=== PATIENT | female | born 1960 | race Caucasian/White ===

== ENCOUNTER 2025-03-06 15:08 | Outpatient (REF) | payer OTHER, SELFPAY ==
--- NOTE | 2025-03-06 | EMG_ITS ---
Chief complaint: History of right breast cancer, status post lumpectomy, radiation and axillary node biopsy 09/2023. Around March 2024, started feeling pain on right arm, diagnosed axillary web syndrome, underwent physical therapy. That pain is improved. However, around September 2024, started having numbness on right palm and fingers, not affecting 5th digit. Referred by: Raquel CROCKETT Procedure done: Right upper extremity NCS/EMG Precautions and/or limitations: None The limb temperature was monitored continuously and remained between 32-36 degrees C during the performance of the NCS. Nerve Conduction Studies Anti Sensory Summary Table ?Stim Site NR Onset (ms) Norm Onset (ms) Peak (ms) Norm Peak (ms) O-P Amp (?V) Norm O-P Amp Site1 Site2 Delta-0 (ms) Dist (cm) Oh (m/s) Norm Oh (m/s) Right Median Anti Sensory (2nd Digit) Wrist ? 4.3 5.5 <3.6 32.1 >10 Wrist 2nd Digit 4.3 14.0 33 Right Radial Anti Sensory (Thumb) Forearm ? 1.9 2.5 <3.1 28.4 Forearm Thumb 1.9 0.0 Right Ulnar Anti Sensory (5th Digit) Wrist ? 2.9 3.6 <3.7 22.4 >15.0 Wrist 5th Digit 2.9 14.0 48 Motor Summary Table ?Stim Site NR Onset (ms) Norm Onset (ms) O-P Amp (mV) Norm O-P Amp iAmp (mV) Amp (1st) (%) Site1 Site2 Delta-0 (ms) Dist (cm) Oh (m/s) Norm Oh (m/s) Right Median Motor (Abd Poll Brev) Wrist ? 6.0 <3.9 9.8 >4.5 11.0 100.0 Elbow Wrist 4.3 21.0 49 >45 Elbow ? 10.3 9.7 10.8 99.0 Right Ulnar Motor (Abd Dig Minimi) Wrist ? 3.0 <3.0 6.5 >5 8.1 100.0 B Elbow Wrist 4.0 21.0 53 >45 B Elbow ? 7.0 6.2 7.5 95.4 A Elbow B Elbow 1.6 10.0 63 >45 A Elbow ? 8.6 5.9 7.1 90.8 EMG ?Side Muscle Nerve Root Ins Act Fibs Psw Amp Dur Poly Recrt Int Pat Comment Right 1stDorInt Ulnar C8-T1 Nml Nml Nml Nml Nml 0 Nml Complete Right FlexCarRad Median C6-7 Nml Nml Nml Nml Nml 0 Nml Complete Right Biceps Musculocut C5-6 Nml Nml Nml Nml Nml 0 Nml Complete Right Triceps Radial C6-7-8 Nml Nml Nml Nml Nml 0 Nml Complete Right Deltoid Axillary C5-6 Nml Nml Nml Nml Nml 0 Nml Complete Paraspinal EMG ?Side Muscle Nerve Root Ins Act Fibs Psw Comment Right Cervical Upper Rami Nml Nml Nml Right Cervical Mid Rami Nml Nml Nml Right Cervical Lower Rami Nml Nml Nml FINDINGS: Right median motor nerve showed prolonged distal latency, normal amplitude and normal conduction velocity. Right median sensory nerve showed prolonged peak latencies. All other nerves tested were within normal. Concentric needle EMG was performed in selected muscles of the right upper extremity and cervical paraspinals. Study did not reveal signs of electric abnormalities as shown in the table above. IMPRESSION: 1. This is an abnormal study. 2. 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 3. There is no electrodiagnostic evidence for ulnar neuropathy, brachial plexopathy, or cervical radiculopathy. Thank you for your kind referral. Emelyn Walker MD, ANGEL Board Certified, [place] [employer] and Rehabilitation (ABPMR) Board Certified, [place] Board of Electrodiagnostic Medicine (ABEM) CODIN 03922 x 1 extremity MTDD
--- OUTSIDE RECORDS SUMMARY | 2025-03-06 18:20 | XMS_ITS | Encounter Summary ---
Author Organization [facility] Address [address] [place] [address] Care Team Providers Care Process Control Manager Name Role Phone Martir Jameson MD Primary Care Provider [phone] Encounter Details Date Type Department Care Team (Late st Contact Info) Description 01/29/2025 Results Follow-Up Adult Medicine [address] [phone] Eliseo Harrell MD [address] [place] [address] Social History Tobacco Use Types Packs/Day Years Used Date Smoking Tobacco: Never Smokeless Tobacco: Never Alcohol Use Standard Drinks/Week Comments Yes 0 (1 standard drink = 0.6 oz pur e alcohol) Comments Unknown Sex and Gender Information Value Date Recorded Sex Assigned at Not on file Legal Sex Female 10:45 AM EST Gender Identity Female 03/06/2025 6:08 PM EST Sexual Orientation Not on file documented as of this encounter Plan of Treatment Upcoming Encounters Date Type Department Care Team (Late Contact Info) Description 03/13/2025 3:00 PM EST Office Visit Orthopedic Surgery - [place] [address] [facility] [address] [place] [address] Raquel Wheatley PA [address] [place] [phone] 03/25/2025 5:00 PM EST Office Visit Adult Medicine [address] [phone] Shayla Narvaez, [employer]OACHER [address] [place] [address] documented as of this encounter Visit Diagnoses Not on filedocumented in this encounter Care Teams Process Control Manager Relationship Specialty Start Date End Date Martir Jameson MD [address] [place] [address] PCP - General Internal Medicine 10/08/09 documented as of this encounter
--- OUTSIDE RECORDS SUMMARY | 2025-03-06 18:20 | XMS_ITS | Clinical Summary ---
Author Organization [facility] [address] [place] [address] [place] [phone] Phone Care Team Providers Care Offset Press Operator Name Role Phone Martir Jameson MD Primary Care Provider [phone] Allergies No known active allergies Medications anastrozole (ARIMIDEX) 1 mg Take 1 tablet (1 mg total) by mouth 1 (one) time each day 11/10/2024 Active calcium citrate-vitamin D (CITRACAL+D) 315 mg-5 mcg (200 unit) per tablet Take 1 tablet by mouth 1 (one) time each day. 600 mg takes 2 daily Active meloxicam (MOBIC) 7.5 mg tabletIndicatio ns:Trigger finger of right thumb,Pain of right thumb Take 1 tablet (7.5 mg total) by mouth 1 (one) time each day if needed for moderate pain. 7 each 11/14/2024 Active Active Problems Problem Noted Date Diagnosed Date Prediabetes 11/15/2024 Elevated blood pressure reading 11/14/2024 Assessment & Plan (11/14/2024 3:21 PM EDT): Initial BP was 145/91 , 5 min average was 141/87 Advised to obtain a blood pressure monitor from her pharmacy and check blood pressure readings daily Follow-up in 2 weeks with blood pressure log Will check basic labs Orders: Blood pressure monitor Comprehensive metabolic panel; Future Hemoglobin A1c; Future Transthoracic echocardiogram (TTE) complete with PRN contrast, bubble, strain, and 3D order panel; Future Invasive ductal carcinoma of breast, female, right (CMS/HCC V24, CMS/HCC V28) 01/10/2023 Raynaud's disease 08/30/2021 Encounters Date Type Department Care Team Description 01/29/2025 Results Follow-Up [address] [phone] Eliseo Harrell MD 01/28/2025 3:30 PM EDT Ancillary Procedure [facility] [address] [facility] [place] [address] [place] [phone] Elevated blood pressure reading; Systolic murmur 12/24/2024 5:00 PM EDT Office Visit [address] [phone] Shayla Narvaez DYE ROOM HELPER Elevated blood pressure reading (Primary Dx); Prediabetes 12/20/2024 3:15 PM EDT Consult Orthopedic Surgery - [place] [address] [facility] [address] [place] [address] Raquel Wheatley PA Hand numbness (Primary Dx); Trigger finger of right thumb; Pain of right thumb from Last 3 Months Immunizations Immunization Administration Dates Next Due Influenza, Unspecified 01/18/2015 Td Tetanus diptheria (Tdvax) 7yo and older 08/30 Tdap Tetanus diptheria acell ular pertussis (Boostrix; Adacel) 7yo and older 11/19/2009 Surgical History Surgery Date Site/Laterality Comments BREAST BIOPSY 2009 Right PROCEDURE: BX BREAST; PERC NEEDLE CORE W/IMAG GUID; COMMENT: cyst asp BACK SURGERY 06/2014 PROCEDURE: HISTORICAL BACK SURGERY; COMMENT: L4 and L5 decompression and fusion Medical History Medical History Date Comments Invasive ductal carcinoma of breast, female, right (CMS/HCC V24, CMS/HCC V28) 01/10/2023 DX:Invasive ductal carcinoma of breast, female, right (HCC) Family History Medical History Relation Name Comments Other: Other Brother HIV Diabetes Father Heart attack Mother Hypertension Mother Other: pancreatic cancer Mother Other: CA Ovarian, Cervical Other Negative Hx Breast cancer Neg Hx Colon cancer Neg Hx Ovarian cancer Neg Hx Relation Name Status Comments Brother Father Mother Other Social History Tobacco Use Types Packs/Day Years Used Date Smoking Tobacco: Never Smokeless Tobacco: Never Tobacco Cessation:Counseling Given: Not Answered Alcohol Use Standard Drinks/Week Comments Yes 0 (1 standard drink = 0.6 oz pur e alcohol) Comments Unknown Sex and Gender Information Value Date Recorded Sex Assigned at Not on file Legal Sex Female 10:45 AM EST Gender Identity Female 03/06/2025 6:08 PM EST Sexual Orientation Not on file Obstetrics History Last Filed Vital Signs Vital Sign Reading Time Taken Comments Blood Pressure 149/91 01/28/2025 3:42 PM EDT Pulse 88 12/24/2024 4:02 PM EDT Temperature 36.2 C (97.1 F) 12/24/2024 4:02 PM EDT Respiratory Rate 16 12/24/2024 4:02 PM EDT Oxygen Saturation 95% 12/24/2024 4:02 PM EDT Inhaled Oxygen Concentration - - Weight 57.2 kg (126 lb) 01/28/2025 3:42 PM EDT Height 167.6 cm (5' 6 ) 01/28/2025 3:42 PM EDT Body Mass Index 20.34 01/28/2025 3:42 PM EDT Plan of Treatment Upcoming Encounters Date Type Department Care Team (Late st Contact Info) Description 03/13/2025 3:00 PM EST Office Visit Orthopedic Surgery - [place] [address] [facility] [address] [place] [phone] Raquel Wheatley PA [address] [facility] [address] [place] [address] [place] [phone] 03/25/2025 5:00 PM EST Office Visit Adult Medicine [facility] [address] [place] [phone] Shayla Narvaez DYE ROOM HELPER [address] [place], [place] Health Maintenance Due Date Last Done Comments Pneumococcal Vaccine: 50+ Years (1 of 2 - PCV) 1977 Zoster Vaccines (1 of 2) 1977 RSV Immunization Adult Patients (1 - Risk 50-74 years 1-dose series) 2008 Colorectal Cancer Screening: Stool Based Tests (FOBT/FIT) 04/02/2022 Osteoporosis Screening (Bone Density Screening) 04/02/2022 Social Influencers of Health Screening 04/02/2022 Falls Risk Assessment 08/07/2023 Depression Screening 04/24/2024 COVID-19 Vaccine ( season) 2024 05/14/2021, 08/28/2020, 2020 Influenza Vaccine (#1) 2024 02/18/2023, 2014 Breast Cancer Screening 01/09/2025 01/10/20 23, 12/29/2022, 01/20/2022, Additional history exists Cholesterol Screening (Lipid Panel) 04/08/2026 04/08/2021 DTaP,Tdap,and Td Vaccines (3 - Td or Tdap) 08/31/2031 08/30/2021, 11/19/2009 Hepatitis C Screening Completed 11/14/2024 HIB Vaccines Aged Out No longer eligi ble based on patient's age to complete this topic HPV Vaccines Aged Out No longer eligi ble based on patient's age to complete this topic Hepatitis A Vaccines Aged Out No long er eligible based on patient's age to complete this topic Hepatitis B Vaccines Aged Out No long er eligible based on patient's age to complete this topic IPV Vaccines Aged Out No longer eligi ble based on patient's age to complete this topic MMR Vaccines Aged Out No longer eligi ble based on patient's age to complete this topic Meningococcal ACWY Vaccine Aged Out N o longer eligible based on patient's age to complete this topic Meningococcal B Vaccine Aged Out No l onger eligible based on patient's age to complete this topic RSV Immunization Patients Under 20 months Aged Out No longer eligible based on patient's age to complete this topic Varicella Vaccines Aged Out No longer eligible based on patient's age to complete this topic Procedures Procedure Name Priority Date/Time Associated Diagnosis Comments TRANSTHORACIC ECHOCARDIOGRAM (TTE) COMPLETE Routine 01/28/2025 4:08 PM EDT Elevated blood pressure reading Systolic murmur HEPATITIS C ANTIBODY Routine 11/14/2024 3:48 PM EDT Need for hepatitis C screening test DX MAMMO INCL CAD UNI Routine 01/09/2023 1:29 PM EDT Mastodynia LIPID PANEL Routine 04/08/2021 from Last 3 Months or Most Recently Relevant to Health Maintenance Results * TRANSTHORACIC ECHOCARDIOGRAM (TTE) COMPLETE (01/28/2025 4:08 PM EDT) Left Atrium Minor [place] 4.6 cm CV PACS Left Atrium Major [place] 4.1 cm CV PACS LA Area Sys (A2C) 11 cm2 CV PACS LA Area Sys (A4C) 11 cm2 CV PACS LA Volume (BP) 23 mL CV PACS LA Size 3.2 cm CV PACS RA Area 9.0 cm2 CV PACS RA 2D Volume 15 mL CV PACS AV Mean Gradient 4 mmHg CV PACS AV Mean Gradient 4 mmHg CV PACS Ao VTI 30.1 cm CV PACS AV Peak Oh 1.6 m/s CV PACS AV Peak Gradient 10 mmHg CV PACS AV Area Continuity Equation 2.2 cm2 CV PACS AV Area Peak Velocity 2.6 cm2 CV PACS Aortic Arch 2.6 cm CV PACS Ascending Aorta 3.5 cm CV PACS Aortic Sinus Valsalva 3.4 cm CV PACS IVC Proximal 1.5 cm CV PACS IVSD 0.8 0.6 - 0.9 cm CV PACS LVIDD 4.9 3.8 - 5.2 cm CV PACS LVIDS 3.2 2.2 - 3.5 cm CV PACS LVOT Diameter 1.9 cm CV PACS LVOT Mean Oh 0.8 m/s CV PACS LVOT Mean Grad 4 mmHg CV PACS LVOT Peak VTI 23.6 cm CV PACS LVOT Peak Oh 1.4 m/s CV PACS LVOT Peak Gradient 8 mmHg CV PACS LVPWD 0.9 0.6 - 0.9 cm CV PACS MV E' Tissue Velocity Lateral 9 cm/s CV PACS MV E' Tissue Velocity Septal 8 cm/s CV PACS LVOT Area 2.8 cm2 CV PACS LVOT Stroke Volume 67 mL CV PACS MV Deceleration [place] 4.6 m/s2 CV PACS E Wave Deceleration Time 166 119 - 242 ms CV PACS MV PHT 49 ms CV PACS MV Peak A Oh 0.74 m/s CV PACS MV Peak E Oh 0.80 m/s CV PACS MV Mean Gradient 1 mmHg CV PACS MV Mean Gradient 1 mmHg CV PACS MV Mean Gradient 1 mmHg CV PACS MV Mean Gradient 1 mmHg CV PACS MV VTI 16.1 cm CV PACS Mitral Valve Max Velocity 0.7 m/s CV PACS MV Peak Gradient 2 mmHg CV PACS MV Area PHT 4.5 cm2 CV PACS MV Area Continuity Equation 4.2 cm2 CV PACS PV Acceleration Time 225 ms CV PACS PV Acceleration Time 183 ms CV PACS PV Acceleration Time 151 ms CV PACS PV Acceleration Time 186 ms CV PACS PV Mean Gradient 1 mmHg CV PACS PV VTI 15.5 cm CV PACS PV Peak Velocity 0.8 m/s CV PACS PV Peak Gradient 2 mmHg CV PACS RV Diastolic Basal Dimension 3.1 2.5 - 4.1 cm CV PACS RV S' 12 cm/s CV PACS TAPSE 21 mm CV PACS TR Peak Velocity 2.17 m/s CV PACS TR Peak Gradient 19 mmHg CV PACS E/E' Ratio Septal 10 CV PACS E/E' Ratio Averaged 9 CV PACS LVOT Stroke Index 41 mL/m2 CV PACS LA Dimension Index 2D 2.0 cm/m2 CV PACS Relative Wall Thickness ratio 0.37 CV PACS LVOT:AV VTI Index 0.78 CV PACS FS 35 % CV PACS LV Mass 2D 142 g CV PACS Ascending Aorta Index 2.13 cm/m2 CV PACS MV VTI:LVOT VTI ratio 0.7 CV PACS LVOT flow 227 mL/s CV PACS RA 2D Volume Index 9 mL/m2 CV PACS EPI Index (VTI) 1.35 cm2/m2 CV PACS EPI Index (Pk Oh) 1.59 cm2/m2 CV PACS LVIDD Index 2.99 cm/m2 CV PACS LVIDS Index 1.95 cm/m2 CV PACS AV Velocity Ratio 0.88 CV PACS E/A Ratio 1.1 CV PACS E/E' Ratio Lateral 9 CV PACS LA Volume Index (BP) 14 mL/m2 CV PACS LV Mass Index 2D 87 g/m2 CV PACS BSA 1.63 m2 CV PACS Right Ventricular Peak Systolic Pressure 22 mmHg CV PACS Est. RA Pressure 3 mmHg CV PACS Anatomical Region Laterality Modality Ultrasound Narrative 01/29/2025 9:48 AM EDT Left ventricle cavity size is normal. Left ventricular systolic function is in the normal range with an ejection fraction of 60-65%. No regional LV wall motion abnormalities noted. Left ventricle wall thickness is normal. Right ventricle cavity is normal. Right ventricular systolic function is normal. The atria are normal in size. No hemodynamically significant valve disease. See remainder of the report for additional findings. Left Ventricle Left ventricle cavity size is normal. Wall thickness is normal. Systolic function is normal with an ejection fraction of 60-65%. There are no regional LV wall motion abnormalities. Indeterminate diastolic function. Right Ventricle Right ventricle cavity appears normal. Systolic function is normal. Left Atrium Left atrium cavity size is normal. Right Atrium Right atrium cavity is normal. IVC/SVC Inferior vena cava structure is normal. RA pressures is estimated to be 3 mmHg (IVC diameter <21 mm and decreases >50% during inspiration). Mitral Valve The leaflets are mildly thickened. There is mild annular calcification. There is trace regurgitation. There is no evidence of mitral valve stenosis. Tricuspid Valve Tricuspid valve structure is normal. There is trace regurgitation. There is no evidence of tricuspid valve stenosis. The right ventricular systolic pressure is normal. Aortic Valve The aortic valve is trileaflet. The leaflets are mildly thickened. There is no regurgitation or stenosis. Pulmonic Valve There is no regurgitation or stenosis. Ascending Aorta The aorta appears normal in size. Pericardium Pericardium appears normal. There is no pericardial effusion. Study Details Overall the study quality was adequate. Eliseo Harrell MD CV ECHO PROCEDUR ES Final Result * Hepatitis C antibody (11/14/2024 3:48 PM EDT) Hepatitis C Antibody Negative Negative LAB CHEMISTRY METHOD 11/14/2024 8:28 PM EDT [facility] Blood Venous blood specimen / Unknown Venipuncture / Unknown 11/14/2024 3:48 PM EDT 11/14/2024 3:48 PM EDT Eliseo Harrell MD LAB BLOOD ORDERA BLES Final Result [facility] [address] [place] [address], * DX MAMMO INCL CAD UNI (01/09/2023 1:29 PM EDT) Anatomical Region Laterality Modality Mammography 12/29/2022 10:4 8 AM EDT Narrative 01/10/2023 10:39 AM EDT EXAM: Ultrasound guided core-needle biopsy of the right breast. HISTORY: Ultrasound-guided biopsy of right breast 11:00 mass COMPARISON: Ultrasound from 12/29/2022 FINDINGS: Limited views of the right axilla demonstrates no lymphadenopathy. CONSENT: The time-out, which included the woman's full name, date of , description of the expected procedure and procedure site, was performed immediately before the procedure to confirm woman's identity. Informed consent was obtained. PROCEDURE: An ultrasound guided biopsy was performed for the right breast 11:00 mass The patient was placed in the supine position and the lesion was localized using real-time sonography. The skin was prepped in the usual manner and draped. Subcutaneous lidocaine was administered at the expected entry site. Additional subcutaneous anesthesia was provided. A skin sunny was made using a scalpel. A 14-gauge spring breast biopsy needle was advanced to the preselected lesion. 4 core biopsy specimens were obtained and post-fire images documenting needle placement were recorded. Biopsy marker clip was inserted into the biopsy cavity under ultrasound guidance. Postprocedure mammogram demonstrates clip. Following the procedure, the biopsy site was compressed and cleaned. Steri- Strips and sterile gauze were applied and the patient was given post-biopsy instructions. The patient tolerated the procedure well and left the department in good condition. Specimens were placed in formalin and sent for pathologic analysis. Permanent images are saved to PACS. IMPRESSION: IMPRESSION: Successful ultrasound-guided biopsy of a right breast 11:00 mass SURGICAL PATHOLOGY REPORT DIAGNOSIS: Invasive ductal carcinoma Pathology findings are concordant with imaging findings. BIRADS category 6 - Known Biopsy-Proven Malignancy RECOMMENDATION: Recommend consultation with breast surgeon These findings were discussed with the patient via telephone on 01/10/2023 at approximately 10:10 AM Procedure Note Arely Whitaker MD - 05/30/2023 EXAM: Ultrasound guided core-needle biopsy of the right breast. HISTORY: Ultrasound-guided biopsy of right breast 11:00 mass COMPARISON: Ultrasound from 12/29/2022 FINDINGS: Limited views of the right axilla demonstrates no lymphadenopathy. CONSENT: The time-out, which included the woman's full name, date of ,description of the expected procedure and procedure site, was performed immediately before theprocedure to confirm woman's identity. Informed consent was obtained. PROCEDURE: An ultrasound guided biopsy was performed for the right breast 11:00mass The patient was placed in the supine position and the lesion was localizedusing real-time sonography. The skin was prepped in the usual manner and draped. Subcutaneous lidocaine was administered at the expected entry site.Additional subcutaneous anesthesia was provided. A skin sunny was made using a scalpel. A 14-gaugespring breast biopsy needle was advanced to the preselected lesion. 4 core biopsy specimenswere obtained and post-fire images documenting needle placement were recorded. Biopsy marker clip was inserted into the biopsy cavity under ultrasoundguidance. Postprocedure mammogram demonstrates clip. Following the procedure, the biopsy site was compressed and cleaned.Steri-Strips and sterile gauze were applied and the patient was given post-biopsy instructions. The patient tolerated the procedure well and left the department in goodcondition. Specimens were placed in formalin and sent for pathologic analysis. Permanent images are saved to PACS. IMPRESSION: IMPRESSION: Successful ultrasound-guided biopsy of a right breast 11:00 mass SURGICAL PATHOLOGY REPORT DIAGNOSIS: Invasive ductal carcinoma Pathology findings are concordant with imaging findings. BIRADS category 6 - Known Biopsy-Proven Malignancy RECOMMENDATION: Recommend consultation with breast surgeon These findings were discussed with the patient via telephone on 01/10/2023t approximately 10:10 AM Ramandeep CROCKETT [facility] BI PROCEDURES Final Result * (ABNORMAL) Lipid panel (04/08/2021) LDL/HDL Ratio 3 0 - 4 Triglycerides 53 0 - 150 mg/dL Cholesterol 195 0 - 200 mg/dL HDL 75 >=39 mg/dL LDL Cholesterol 110(A) 0 - 100 mg/dL Blood Venous blood specimen / Unknown us Historical Provider LAB BLOOD ORDERABLES Kasandra l Result from Last 3 Months or Most Recently Relevant to Health Maintenance Insurance [employer] Care Teams Offset Press Operator Relationship Specialty Start Date End Date Martir Jameson MD [address] [place] [phone] PCP - General Internal Medicine 10/08/09
== END 2025-03-06 15:09 | disposition home or self-care (01) ==
LOC: HO.NEURO 15:08
PROVIDERS: PCP Internal Medicine; Visit Provider Physician Assistant
DX: R20.0 Anesthesia of skin (principal)
CPT/HCPCS: 95886; 95909

== ENCOUNTER → 2025-03-06 15:12 | Outpatient (BNV) | payer OTHER, SELFPAY | PROVIDERS: PCP Internal Medicine; Visit Provider Physical Medicine & Rehabilitation | DX: G56.01 Carpal tunnel syndrome, right upper limb (principal) | CPT/HCPCS: 95886; 95909 ==